=== PATIENT | female | born 1965 | race Caucasian/White ===

== ENCOUNTER 2024-03-20 04:45 | Emergency (ER) | payer OTHER ==
[~2024-03-20] VITALS: Ht 172.7 cm; Wt 77.3 kg
[2024-03-20] MEDS ORDERED: NS 1,000 ML IV SCH (05:15)
[2024-03-20 05:44] LABS: BASO # 0.05 K/mm3 (0.02-0.10); EOS # 0.14 K/mm3 (0.04-0.40); EOS % 2.1 % (1.0-5.0); HEMATOCRIT 38.7 % (37.0-47.0); HEMOGLOBIN 13.8 g/dL (12.5-16.0); LYMPH# 2.13 K/mm3 (1.50-4.00); MEAN CELL VOLUME 83 fl (78-100); MEAN CORPUSCULAR HEMOGLOBIN 30 pg (27-31); MEAN CORPUSCULAR HGB CONC 36 g/dL (33-37); MEAN PLATELET VOLUME 9.1 fl (7.4-10.4); MONO # 0.72 K/mm3 (0.20-0.80); NEU # 3.76 K/mm3 (1.40-6.50); PLATELET COUNT 222 K/mm3 (130-400); RED BLOOD COUNT 4.67 M/mm3 (4.10-5.30); RED CELL DISTRIBUTION WIDTH 12.5 % (11.5-14.5); WHITE BLOOD COUNT 6.8 K/mm3 (4.8-10.8)
[2024-03-20 05:48] LABS: SODIUM 144 mmol/L (136-145)
[2024-03-20 05:50] LABS: ALBUMIN 4.5 g/dL (3.5-5.0); GLUCOSE 101 mg/dL (65-105); TOTAL PROTEIN 7.1 g/dL (6.4-8.3)
[2024-03-20 05:51] LABS: CALCIUM 9.9 mg/dL (8.3-10.5)
[2024-03-20 05:52] LABS: TOTAL BILIRUBIN 0.5 mg/dL (0.2-1.2)
[2024-03-20 05:53] LABS: CARBON DIOXIDE 21 mmol/L (22-29)
[2024-03-20 05:55] LABS: AST-SGOT 23 U/L (5-34)
[2024-03-20 05:59] LABS: ALT/SGPT 27 U/L (0-55)
[2024-03-20 06:06] LABS: TROPONIN-I < 0.030 ng/mL (0.00-0.033)
[2024-03-20 06:49] VITALS: BP 147/84
== END 2024-03-20 06:48 | disposition home or self-care (01) ==
LOC: ED 04:45
PROVIDERS: Family Medicine
DX: M94.0 Chondrocostal junction syndrome [Tietze] (principal); R74.8 Abnormal levels of other serum enzymes; R79.89 Other specified abnormal findings of blood chemistry
CPT/HCPCS: J7030